=== PATIENT | female | born 1975 | race African-American/Black ===

== ENCOUNTER 2017-06-04 09:11 | Outpatient (CLI) | payer OTHER ==
--- NOTE | 2017-06-04 12:04 | MRI ---
RIGHT SHOULDER MRI WITHOUT IV CONTRAST: HISTORY: A 42-year-old female with right shoulder pain for several months without known trauma. FINDINGS: Multiplanar, multisequence MRI examination of the right shoulder is performed. There are some AC kendra nt arthrosis changes with some downsloping of the anterior acromion and the lateral acromion. There is some fluid and moderate fat stranding in the subacromial subdeltoid bursa. There appears to be a focal at least mid to high-grade partial-thickness undersurface tear of the region of the conjoined t endon. There is one tiny focus of linear signal which could potentially be a punctate full-thickness component. The biceps tendon and subscapularis tendons appear intact. Rotator cuff muscles are wit hin normal limits of signal and volume. No acute osteochondral defect. 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 Mid to high-grade partial-thickness tear of the conjoined tendon at the level of the magic angle without evidence for retraction with a p otential tiny punctate full-thickness component. Unremarkable labrum. No other significant internal derangement. POS: C
== END 2017-06-04 09:12 | disposition home or self-care (01) ==
LOC: SCSMRI 09:11
PROVIDERS: ATTEND Anesthesiology Pain Medicine
DX: S43.421A Sprain of right rotator cuff capsule, initial encounter (principal); M19.011 Primary osteoarthritis, right shoulder

== ENCOUNTER 2017-08-21 18:16 | Emergency (ER) | payer OTHER | END 2017-08-21 18:40 | disposition home or self-care (01) | LOC: ERS 18:16 | DX: S60.012A Contusion of left thumb without damage to nail, initial encounter (principal); Z87.891 Personal history of nicotine dependence; W22.8XXA Striking against or struck by other objects, initial encounter; Y92.239 Unspecified place in hospital as the place of occurrence of the external cause; Y99.0 Civilian activity done for income or pay | CPT/HCPCS: 99283 ==